=== PATIENT | male | born 2000 | race Caucasian/White ===

== ENCOUNTER 2023-12-08 11:01 | Day surgery (SDC) | payer BC ==
[~2023-12-08] VITALS: Ht 175.3 cm; Wt 96.7 kg
--- NOTE | 2023-12-08 12:47 | NUR ---
12/08/23 1247 Brittanie Sheriff TIMEOUT FOR BLOCK COMPLETED
--- NOTE | 2023-12-08 13:34 | NUR ---
12/08/23 1334 Tigre Anaya 1 MG EPI ADDED TO THE FIRST BAG OF LR FOR IRRIGATION AT [facility] [place] BY DR BURDEN.
[2023-12-08 14:57] VITALS: BP 125/60
== END 2023-12-08 15:54 | disposition home or self-care (01) ==
LOC: ORSCSDS 11:01
PROVIDERS: Orthopaedic Surgery Sports Medicine
PROC: 0RQJ4ZZ Repair Right Shoulder Joint, Percutaneous Endoscopic Approach (ICD-10-PCS; principal; 2023-12-08 12:30)
DX: S43.084A Other dislocation of right shoulder joint, initial encounter (principal)
CPT/HCPCS: C1713; J0171; J0690; J1100; J1885; J2405; J2704; J3010; J7120